=== PATIENT | female | born 1935 | race Caucasian/White ===

== ENCOUNTER 2017-06-14 07:12 | Outpatient (CLI) | payer SELFPAY ==
[2017-06-14 08:37] LABS: HEMOGLOBIN A1C 5.3 % (4.5-6.2)
[2017-06-14 08:49] LABS: CHOL/HDL RATIO 2.11 (0.00-4.99)
== END 2017-06-14 23:59 | disposition home or self-care (01) ==
LOC: HW WOMENS 07:12
DX: Z00.00 Encounter for general adult medical examination without abnormal findings (principal)
CPT/HCPCS: 36415

== ENCOUNTER 2017-12-22 11:36 | Emergency (ER) | payer MEDICARE, OTHER ==
[~2017-12-22] VITALS: Ht 160 cm; Wt 50.4 kg
[2017-12-22 12:41] LABS: BASOPHILS # (AUTO) 0.1 X10'3 (0-0.2); BASOPHILS % (AUTO) 1.4 % (0-1); EOSINOPHILS # (AUTO) 0.1 X10'3 (0-0.9); EOSINOPHILS % (AUTO) 1.7 % (0-6); HEMATOCRIT 41.8 % (35.0-45.0); HEMOGLOBIN 14.3 g/dl (12.0-16.0); LYMPHOCYTES # (AUTO) 0.9 X10'3 (1.1-4.8); LYMPHOCYTES % (AUTO) 20.7 % (21-51); MEAN CORPUSCULAR HGB CONC 34.1 % (33.0-36.5); MEAN CORPUSCULAR VOLUME 99.7 FL (78-98); MONOCYTES # (AUTO) 0.6 X10'3 (0-0.9); MONOCYTES % (AUTO) 12.7 % (2-12); NEUTROPHILS # (AUTO) 2.8 X10'3 (1.8-7.7); NEUTROPHILS % (AUTO) 63.5 % (42-75); PLATELET COUNT 175 X10'3 (140-440); RED BLOOD COUNT 4.19 X10'6 (4.20-5.60); RED CELL DISTRIBUTION WIDTH 12.7 % (11.5-14.5); WHITE BLOOD COUNT 4.5 X10'3 (4.5-11.0)
[2017-12-22 12:59] LABS: ALANINE AMINOTRANSFERASE 22 U/L (12-78); ALBUMIN 3.4 G/DL (3.4-5.0); ALBUMIN/GLOBULIN RATIO 0.9 (1.1-1.5); ALKALINE PHOSPHATASE 98 IU/L (46-116); ANION GAP 4 (8-16); ASPARTATE AMINO TRANSFERASE 25 U/L (10-37); BLOOD UREA NITROGEN 14 MG/DL (7-18); BUN/CREATININE RATIO 16.1 (6.6-38.0); CALCIUM 9.1 MG/DL (8.5-10.1); CHLORIDE 103 MMOL/L (99-107); CREATININE 0.87 MG/DL (0.40-0.90); GLUCOSE 147 MG/DL (70-104); POTASSIUM 4.2 MMOL/L (3.5-5.1); SODIUM 139 MMOL/L (135-145); TOTAL CARBON DIOXIDE 32.2 MMOL/L (24-32); TOTAL PROTEIN 7.2 G/DL (6.4-8.2); eGFR 62 ML/MIN
[2017-12-22 13:10] LABS: PARTIAL THROMBOPLASTIN TIME 30 SECONDS (22-32); PROTHROMBIN TIME 10.6 SECONDS (9.0-12.0)
[2017-12-22 13:52] LABS: CLARITY,URINE CLEAR (Clear); COLOR,URINE YELLOW (Yellow); GLUCOSE, URINE NEGATIVE (Neg); KETONES,URINE NEGATIVE (Neg); LEUKOCYTE ESTERASE ,URINE SMALL (Neg); NITRITES, URINE NEGATIVE (Neg); OCCULT BLOOD,URINE NEGATIVE (Neg); PROTEIN,URINE NEGATIVE (Neg); UROBILINOGEN,URINE 0.2 E.U/dL (0.2-1.0)
[2017-12-22 13:54] LABS: UA COLLECTION TYPE CLN CATCH MIDSTREAM
[2017-12-22 14:03] LABS: BACTERIA,URINE FEW /HPF (Neg); MUCUS STRANDS FEW /LPF (Neg); RBC,URINE NONE SEEN /HPF (0-2); SQUAMOUS EPITHELIAL CELL,UR MODERATE /LPF (FEW); WBC CLUMPS,URINE FEW /HPF (NEGATIVE)
[2017-12-22 14:04] VITALS: BP 118/55
== END 2017-12-22 14:30 | disposition home or self-care (01) ==
LOC: ER 11:36
DX: H53.8 Other visual disturbances (principal); I48.91 Unspecified atrial fibrillation; I10 Essential (primary) hypertension; F17.200 Nicotine dependence, unspecified, uncomplicated; Z98.890 Other specified postprocedural states; Z86.73 Personal history of transient ischemic attack (TIA), and cerebral infarction without residual deficits; Z88.2 Allergy status to sulfonamides; Z79.01 Long term (current) use of anticoagulants
CPT/HCPCS: 36415; 70450; 71045; 80053; 80162; 81001; 84443; 85025; 85610; 85730; 87088; 93005; 99285

== ENCOUNTER 2018-10-06 11:35 | Emergency (ER) | payer MEDICARE, OTHER ==
[~2018-10-06] VITALS: Ht 160 cm; Wt 53.0 kg
[2018-10-06 13:07] VITALS: BP 117/66
== END 2018-10-06 13:11 | disposition home or self-care (01) ==
LOC: ER 11:35
DX: S20.212A Contusion of left front wall of thorax, initial encounter (principal); R10.9 Unspecified abdominal pain; I48.91 Unspecified atrial fibrillation; I10 Essential (primary) hypertension; Z86.73 Personal history of transient ischemic attack (TIA), and cerebral infarction without residual deficits; Z98.890 Other specified postprocedural states; Z88.2 Allergy status to sulfonamides; Z79.01 Long term (current) use of anticoagulants; W01.0XXA Fall on same level from slipping, tripping and stumbling without subsequent striking against object, initial encounter; Y93.89 Activity, other specified; Y92.89 Other specified places as the place of occurrence of the external cause; Y99.8 Other external cause status
CPT/HCPCS: 71101; 99284

== ENCOUNTER 2018-10-13 07:59 | Emergency (ER) | payer MEDICARE, OTHER ==
[~2018-10-13] VITALS: Ht 160 cm; Wt 50.0 kg
[2018-10-13 08:02] VITALS: BP 143/71
[2018-10-13] MEDS ORDERED: METH500T PO (09:53)
[2018-10-13] MEDS ORDERED: TRAM50TA2 PO (09:53)
== END 2018-10-13 10:01 | disposition home or self-care (01) ==
LOC: ER 08:00
DX: S20.212A Contusion of left front wall of thorax, initial encounter (principal); I48.91 Unspecified atrial fibrillation; I10 Essential (primary) hypertension; Z86.73 Personal history of transient ischemic attack (TIA), and cerebral infarction without residual deficits; Z98.890 Other specified postprocedural states; Z88.2 Allergy status to sulfonamides; Z79.899 Other long term (current) drug therapy; W18.39XA Other fall on same level, initial encounter; Y93.89 Activity, other specified; Y92.89 Other specified places as the place of occurrence of the external cause; Y99.8 Other external cause status
CPT/HCPCS: 71250; 99284

== ENCOUNTER 2019-02-24 06:10 | Emergency (ER) | payer MEDICARE, OTHER ==
[~2019-02-24] VITALS: Ht 160 cm; Wt 52.7 kg
[~2019-02-24 06:10] MED LIST: METH500T PO
--- NOTE | 2019-02-24 06:51 | NUR ---
Dr. Alonso at bedside.
[2019-02-24] MEDS ORDERED: BENZ-16 PO (08:10)
[2019-02-24 08:37] VITALS: BP 104/69
== END 2019-02-24 08:39 | disposition home or self-care (01) ==
LOC: ER 06:12
DX: J06.9 Acute upper respiratory infection, unspecified (principal); I48.91 Unspecified atrial fibrillation; I10 Essential (primary) hypertension; Z98.890 Other specified postprocedural states; Z86.73 Personal history of transient ischemic attack (TIA), and cerebral infarction without residual deficits; Z88.2 Allergy status to sulfonamides; Z79.899 Other long term (current) drug therapy
CPT/HCPCS: 70450; 71046; 99284

== ENCOUNTER 2021-11-01 21:38 | Emergency (ER) | payer MEDICARE, OTHER ==
[~2021-11-01] VITALS: Ht 157.5 cm; Wt 45.5 kg
[2021-11-01] MEDS ORDERED: ALEN70TA80 PO (23:55)
[2021-11-01] MEDS ORDERED: METO25TA6 PO (23:55)
[2021-11-01] MEDS ORDERED: TOLT4CAP28 PO (23:55)
[2021-11-01] MEDS ORDERED: APIX2.5T PO (23:55)
[2021-11-01] MEDS ORDERED: SIMV-45 PO (23:55)
[2021-11-01] MEDS ORDERED: LOTE5DRO9 (23:55)
--- NOTE | 2021-11-02 00:13 | NUR ---
Daughter Bhavna Salcido [phone]
[2021-11-02 01:53] LABS: BASOPHILS % (AUTO) 0.7 % (0-1); EOSINOPHILS # (AUTO) 0.1 X10'3 (0-0.9); EOSINOPHILS % (AUTO) 1.7 % (0-6); HEMATOCRIT 43.5 % (35.0-45.0); HEMOGLOBIN 14.8 g/dl (12.0-16.0); LYMPHOCYTES # (AUTO) 1.1 X10'3 (1.1-4.8); LYMPHOCYTES % (AUTO) 34.6 % (21-51); MEAN CORPUSCULAR HEMOGLOBIN 34.7 PG (27.0-31.0); MEAN CORPUSCULAR HGB CONC 34.1 g/dL (33.0-36.5); MEAN CORPUSCULAR VOLUME 101.8 FL (78-98); MEAN PLATELET VOLUME 8.5 FL (7.4-10.4); MONOCYTES # (AUTO) 0.6 X10'3 (0-0.9); MONOCYTES % (AUTO) 19.1 % (2-12); NEUTROPHILS # (AUTO) 1.4 X10'3 (1.8-7.7); NEUTROPHILS % (AUTO) 43.9 % (42-75); PLATELET COUNT 141 X10'3 (140-440); RED BLOOD COUNT 4.27 X10'6 (4.20-5.60); RED CELL DISTRIBUTION WIDTH 13.4 % (11.5-14.5); WHITE BLOOD COUNT 3.2 X10'3 (4.5-11.0)
--- NOTE | 2021-11-02 02:05 | NUR ---
PT IN BED ASLEEP AT THIS TIME.
[2021-11-02 02:06] LABS: URINE AMPHETAMINE SCREEN NEGATIVE (Neg); URINE BARBITUATE SCREEN NEGATIVE (Neg); URINE BENZODIAZEPINES SCREEN NEGATIVE (Neg); URINE CANNABINOID SCREEN NEGATIVE (Neg); URINE COCAINE SCREEN NEGATIVE (Neg); URINE METHADONE SCREEN NEGATIVE (Neg); URINE OPIATE SCREEN NEGATIVE (Neg); URINE PHENCYCLIDINE SCREEN NEGATIVE (Neg)
[2021-11-02 02:09] LABS: ALANINE AMINOTRANSFERASE 23 U/L (12-78); ALBUMIN 3.7 G/DL (3.4-5.0); ALBUMIN/GLOBULIN RATIO 0.9 (1.1-1.5); ALKALINE PHOSPHATASE 72 IU/L (46-116); ANION GAP 7 (8-16); ASPARTATE AMINO TRANSFERASE 36 U/L (10-37); BLOOD UREA NITROGEN 15 MG/DL (7-18); BUN/CREATININE RATIO 17.9 (6.6-38.0); CALCIUM 9.1 MG/DL (8.5-10.1); CHLORIDE 104 MMOL/L (99-107); CREATININE 0.84 MG/DL (0.40-0.90); ETHANOL < 0.010 GM/DL (0.0-0.010); GLUCOSE 95 MG/DL (70-104); POTASSIUM 4.4 MMOL/L (3.5-5.1); SODIUM 144 MMOL/L (135-145); TOTAL CARBON DIOXIDE 32.9 MMOL/L (24-32); TOTAL PROTEIN 7.9 G/DL (6.4-8.2); eGFR 64 ML/MIN
--- NOTE | 2021-11-02 03:56 | NUR ---
LAB CALL FOR POSITIVE COVID. HERNANDEZ AWARE
--- NOTE | 2021-11-02 04:54 | NUR ---
PT IS ASLEEP IN BED. PT RESPIRATIONS ARE EVEN AND UNLABORED
--- NOTE | 2021-11-02 07:00 | NUR ---
Pt resting with eyes closed, effortless respirations observed.
--- NOTE | 2021-11-02 08:20 | NUR ---
Pt remains calm and cooperative and denies needs. Pts breakfast tray set up and pt eating.
[2021-11-02] MEDS ORDERED: apixaban 2.5mg tablet PO SCH (09:11)
[2021-11-02] MEDS ORDERED: metoprolol tartrate 25mg tablet PO SCH (09:56)
[2021-11-02 10:34] LABS: CLARITY,URINE CLOUDY (Clear); COLOR,URINE YELLOW (Yellow); GLUCOSE, URINE NEGATIVE (Neg); KETONES,URINE NEGATIVE (Neg); LEUKOCYTE ESTERASE ,URINE TRACE (Neg); NITRITES, URINE NEGATIVE (Neg); OCCULT BLOOD,URINE NEGATIVE (Neg); PROTEIN,URINE TRACE mg/dl (Neg); UROBILINOGEN,URINE 0.2 E.U/dL (0.2-1.0)
[2021-11-02 10:43] LABS: UA COLLECTION TYPE NON-SPECIFIED
[2021-11-02 10:48] VITALS: BP 112/60
[2021-11-02 11:29] LABS: CAL OXALATE CRYSTALS 4+ /HPF (NEGATIVE); MUCUS STRANDS MODERATE /LPF (Neg); SQUAMOUS EPITHELIAL CELL,UR MODERATE /LPF (FEW)
[2021-11-02 11:31] LABS: BACTERIA,URINE FEW /HPF (Neg); RBC,URINE 0-2 /HPF (0-2); WBC,URINE 0-4 /HPF (0-4)
[2021-11-02 11:32] LABS: HYALINE CASTS 0-3 /LPF (NEGATIVE)
--- NOTE | 2021-11-02 16:30 | NUR ---
SS worker Isabel was updated on pt status. SS will be contacting pts daughter.
--- NOTE | 2021-11-02 17:30 | NUR ---
Pt evaluated by [facility] and pt will be going home with her daughter.
[2021-11-02] MEDS ORDERED: atorvastatin 20mg tablet PO SCH (21:00)
== END 2021-11-02 19:35 | disposition home or self-care (01) ==
LOC: ER 21:40
DX: U07.1 COVID-19 (principal); F03.91 Unspecified dementia, unspecified severity, with behavioral disturbance; F20.0 Paranoid schizophrenia; I10 Essential (primary) hypertension; I11.9 Hypertensive heart disease without heart failure; Z88.2 Allergy status to sulfonamides; Z79.899 Other long term (current) drug therapy; Z87.81 Personal history of (healed) traumatic fracture
CPT/HCPCS: 80053; 80305; 80320; 81001; 85025; 87088; 87811; 99285

== ENCOUNTER 2022-01-13 13:21 | Emergency (ER) | payer OTHER ==
[~2022-01-13] VITALS: Ht 157.5 cm; Wt 45.0 kg
[~2022-01-13 13:21] MED LIST changes: +APIX2.5T PO; -METH500T PO; +METO25TA6 PO; +SIMV-45 PO
[2022-01-13 13:35] VITALS: BP 121/66
[2022-01-13] MEDS ORDERED: LORA-269 PO (15:29)
== END 2022-01-13 15:16 ==
LOC: ER 13:22
DX: F03.90 Unspecified dementia, unspecified severity, without behavioral disturbance, psychotic disturbance, mood disturbance, and anxiety (principal); M54.2 Cervicalgia; I48.91 Unspecified atrial fibrillation; I10 Essential (primary) hypertension; Z86.73 Personal history of transient ischemic attack (TIA), and cerebral infarction without residual deficits; Z98.890 Other specified postprocedural states; Z88.2 Allergy status to sulfonamides; Z79.899 Other long term (current) drug therapy; W18.30XA Fall on same level, unspecified, initial encounter; Y93.89 Activity, other specified; Y92.89 Other specified places as the place of occurrence of the external cause; Y99.8 Other external cause status
CPT/HCPCS: 71045; 99284

== ENCOUNTER 2022-10-04 03:05 | Emergency (ER) | payer MEDICARE ==
[~2022-10-04] VITALS: Ht 154.9 cm; Wt 54.5 kg
[~2022-10-04 03:05] MED LIST changes: -APIX2.5T PO; +ASPI-1071 PO; +BETA1TAB18 PO; +CHOL20002 PO; +CYAN-50 PO; +DIVA125T2 PO; +KEN0.1O TP; +MAGN400C PO; +MELA3TAB39 PO; -METO25TA6 PO; +PANT40TA54 PO; -SIMV-45 PO
[2022-10-04 03:19] VITALS: BP 138/74; PULSE 85; O2SAT 99
[2022-10-04 03:32] VITALS: RESP 18
[2022-10-04 04:59] LABS: BASOPHILS # (AUTO) 0.1 X10'3 (0-0.2); BASOPHILS % (AUTO) 1.4 % (0-1); EOSINOPHILS # (AUTO) 0.2 X10'3 (0-0.9); EOSINOPHILS % (AUTO) 3.1 % (0-6); HEMATOCRIT 39.8 % (35.0-45.0); HEMOGLOBIN 13.4 g/dl (12.0-16.0); LYMPHOCYTES # (AUTO) 0.8 X10'3 (1.1-4.8); LYMPHOCYTES % (AUTO) 14.8 % (21-51); MEAN CORPUSCULAR HEMOGLOBIN 34.5 PG (27.0-31.0); MEAN CORPUSCULAR HGB CONC 33.6 g/dL (33.0-36.5); MEAN CORPUSCULAR VOLUME 102.7 FL (78-98); MONOCYTES # (AUTO) 0.7 X10'3 (0-0.9); NEUTROPHILS # (AUTO) 3.5 X10'3 (1.8-7.7); NEUTROPHILS % (AUTO) 67.7 % (42-75); PLATELET COUNT 191 X10'3 (140-440); RED BLOOD COUNT 3.87 X10'6 (4.20-5.60); RED CELL DISTRIBUTION WIDTH 13.8 % (11.5-14.5); WHITE BLOOD COUNT 5.1 X10'3 (4.5-11.0)
[2022-10-04 05:07] LABS: ALANINE AMINOTRANSFERASE 14 U/L (12-78); ALBUMIN 2.9 G/DL (3.4-5.0); ALBUMIN/GLOBULIN RATIO 0.7 (1.1-1.5); ALKALINE PHOSPHATASE 181 IU/L (46-116); ANION GAP 7 (8-16); ASPARTATE AMINO TRANSFERASE 22 U/L (10-37); BILIRUBIN,TOTAL 0.4 MG/DL (0.1-1.0); BLOOD UREA NITROGEN 16 MG/DL (7-18); BUN/CREATININE RATIO 20.3 (10.0-20.0); CALCIUM 9.2 MG/DL (8.5-10.1); CHLORIDE 104 MMOL/L (99-107); CREATINE KINASE 26 U/L (26-192); CREATININE 0.79 MG/DL (0.40-0.90); GLUCOSE 90 MG/DL (70-104); POTASSIUM 4.3 MMOL/L (3.5-5.1); SODIUM 141 MMOL/L (135-145); TOTAL CARBON DIOXIDE 29.9 MMOL/L (24-32); eGFR 69 ML/MIN
== END 2022-10-04 06:14 | disposition home or self-care (01) ==
LOC: ER 03:05
DX: F03.90 Unspecified dementia, unspecified severity, without behavioral disturbance, psychotic disturbance, mood disturbance, and anxiety (principal); M25.551 Pain in right hip; I10 Essential (primary) hypertension; Z88.2 Allergy status to sulfonamides; Z79.1 Long term (current) use of non-steroidal anti-inflammatories (NSAID); Z79.899 Other long term (current) drug therapy; W19.XXXA Unspecified fall, initial encounter; Y93.89 Activity, other specified; Y99.8 Other external cause status; Y92.89 Other specified places as the place of occurrence of the external cause
CPT/HCPCS: 36415; 70450; 71045; 72125; 73502; 80053; 82550; 85025; 93005; 99285

== ENCOUNTER 2023-01-20 01:01 | Inpatient (IN) | payer MEDICARE ==
[2023-01-19 14:02] VITALS: BP 137/58; PULSE 77; RESP 14; O2SAT 97
[~2023-01-20] VITALS: Ht 157.5 cm; Wt 47.7 kg
[2023-01-20] MEDS ORDERED: morphine 2 MG/ML inj. syringe IV ONE (01:45)
[2023-01-20] MEDS ORDERED: ondansetron/PF 4mg/2ml inj IV ONE (01:45)
[2023-01-20] MEDS: normal saline 500ml IV soln 500 ML IV SCH ×5 (02:18→18:25)
[2023-01-20] MEDS ORDERED: ondansetron/PF 4mg/2ml inj IV PRN (03:00)
[2023-01-20] MEDS ORDERED: magnesium 4gm in 100ml NS 100 ML IV PRN (03:00)
[2023-01-20] MEDS ORDERED: magnesium 2GM in 50ml NS 50 ML IV PRN (03:00)
[2023-01-20] MEDS ORDERED: potassium Cl 40MEQ/1/2NS 520ml 520 ML IV PRN (03:00)
[2023-01-20] MEDS ORDERED: magnesium Cl slow-release 64mg tablet PO PRN (03:00)
[2023-01-20] MEDS ORDERED: acetaminophen 325mg tablet PO PRN ×2 (03:00)
[2023-01-20] MEDS ORDERED: potassium Cl 20 mEq SR tablet PO PRN ×2 (03:00)
[2023-01-20] MEDS ORDERED: CefTRIAXone 2gm/D5W 50ml BAG 50 ML IV ONE (03:05)
[2023-01-20 05:31] LABS: BILIRUBIN,URINE NEGATIVE (Neg); CLARITY,URINE CLOUDY (Clear); COLOR,URINE YELLOW (Yellow); GLUCOSE, URINE NEGATIVE (Neg); KETONES,URINE NEGATIVE (Neg); LEUKOCYTE ESTERASE ,URINE SMALL (Neg); NITRITES, URINE NEGATIVE (Neg); OCCULT BLOOD,URINE NEGATIVE (Neg); PROTEIN,URINE NEGATIVE (Neg); UROBILINOGEN,URINE 0.2 E.U/dL (0.2-1.0)
[2023-01-20 05:33] LABS: MEAN CORPUSCULAR VOLUME 101.5 FL (78-98)
[2023-01-20 05:35] LABS: BASOPHILS % (AUTO) 0.5 % (0-1); EOSINOPHILS # (AUTO) 0.1 X10'3 (0-0.9); EOSINOPHILS % (AUTO) 1.2 % (0-6); HEMATOCRIT 36.5 % (35.0-45.0); HEMOGLOBIN 12.4 g/dl (12.0-16.0); LYMPHOCYTES # (AUTO) 1.6 X10'3 (1.1-4.8); LYMPHOCYTES % (AUTO) 17.4 % (21-51); MEAN CORPUSCULAR HEMOGLOBIN 34.6 PG (27.0-31.0); MEAN CORPUSCULAR HGB CONC 34.1 g/dL (33.0-36.5); MEAN PLATELET VOLUME 8.7 FL (7.4-10.4); MONOCYTES # (AUTO) 0.9 X10'3 (0-0.9); MONOCYTES % (AUTO) 9.5 % (2-12); NEUTROPHILS # (AUTO) 6.7 X10'3 (1.8-7.7); NEUTROPHILS % (AUTO) 71.4 % (42-75); PLATELET COUNT 146 X10'3 (140-440); RED BLOOD COUNT 3.59 X10'6 (4.20-5.60); RED CELL DISTRIBUTION WIDTH 14.2 % (11.5-14.5); WHITE BLOOD COUNT 9.4 X10'3 (4.5-11.0)
[2023-01-20 05:41] LABS: UA COLLECTION TYPE FOLEY CATH
[2023-01-20 05:42] LABS: APTT 29 SECONDS (22-32); INR 1.1 INR; PROTHROMBIN TIME 11.5 SECONDS (9.0-12.0)
[2023-01-20 05:44] LABS: ALANINE AMINOTRANSFERASE 12 U/L (12-78); ALBUMIN 2.8 G/DL (3.4-5.0); ALBUMIN/GLOBULIN RATIO 0.7 (1.1-1.5); ALKALINE PHOSPHATASE 81 IU/L (46-116); ANION GAP 1 (8-16); ASPARTATE AMINO TRANSFERASE 26 U/L (10-37); BILIRUBIN,TOTAL 0.7 MG/DL (0.1-1.0); BLOOD UREA NITROGEN 16 MG/DL (7-18); BUN/CREATININE RATIO 20.3 (10.0-20.0); CALCIUM 8.6 MG/DL (8.5-10.1); CHLORIDE 104 MMOL/L (99-107); CREATININE 0.79 MG/DL (0.40-0.90); GLUCOSE 120 MG/DL (70-104); SODIUM 138 MMOL/L (135-145); TOTAL CARBON DIOXIDE 33.3 MMOL/L (24-32); TOTAL PROTEIN 6.7 G/DL (6.4-8.2); eCRCL 39 ML/MIN; eGFR 69 ML/MIN
[2023-01-20 05:45] LABS: WBC,URINE 30-50 /HPF (0-4)
[2023-01-20 05:46] LABS: BACTERIA,URINE 4+ /HPF (Neg); MUCUS STRANDS NONE SEEN /LPF (Neg); RBC,URINE NONE SEEN /HPF (0-2); SQUAMOUS EPITHELIAL CELL,UR FEW /LPF (FEW); WBC CLUMPS,URINE FEW /HPF (NEGATIVE)
[2023-01-20 06:07] LABS: POTASSIUM 4.6 MMOL/L (3.5-5.1)
[2023-01-20] MEDS: morphine 2 MG/ML inj. syringe IV PRN ×2 (06:39→19:41)
[2023-01-20 07:00] VITALS: BP 120/60; PULSE 82; RESP 20; TEMP 97.8; O2SAT 98
[2023-01-20] MEDS: normal saline 1000ml 1,000 ML IV SCH (07:39)
[2023-01-20 08:00] VITALS: RESP 20; O2SAT 97
[2023-01-20 10:00] VITALS: BP 123/54; PULSE 85; RESP 20; TEMP 97.8; O2SAT 97
--- NOTE | 2023-01-20 11:24 | NUR ---
Noted pt with a low BMI for geriatric age of [age] using wt of 47.73 kg. No documentation of how current wt was obtained so likely not scaled however it is consistent with wt hx range in EMR. Unable to obtain information from pt at this time as pt confused with dementia per EMR. Pt currently NPO and just admitted so pending physical assessment and malnutrition risk screen with RN. Pt does not have edema per physician notes. Will continue to follow and monitor s/s of malnutrition and need for nutrition intervention. Addendum: 01/20/23 at [address] Amended: Links added.
[2023-01-20 18:00] VITALS: BP 123/64; PULSE 79; RESP 18; TEMP 97; O2SAT 99
--- NOTE | 2023-01-20 18:59 | NUR ---
Problems reprioritized. Patient report given, questions answered & plan of care reviewed with Laura.
[2023-01-20] MEDS: enoxaparin 40mg/0.4ml syringe SQ SCH (19:41)
[2023-01-20 22:00] VITALS: BP 134/67; PULSE 91; RESP 16; TEMP 98.5; O2SAT 96
[2023-01-21] VITALS (15 sets, daily range): BP systolic 93–140; BP diastolic 42–74; PULSE 50–108; RESP 12–23; TEMP 97.1–97.9; O2SAT 89–100
--- NOTE | 2023-01-21 06:23 | NUR ---
Problems reprioritized. Patient report given, questions answered & plan of care reviewed with Meg ALARCON.
[2023-01-21 06:32] LABS: BASOPHILS # (AUTO) 0.1 X10'3 (0-0.2); BASOPHILS % (AUTO) 0.6 % (0-1); EOSINOPHILS % (AUTO) 0.1 % (0-6); HEMATOCRIT 33.4 % (35.0-45.0); HEMOGLOBIN 11.1 g/dl (12.0-16.0); LYMPHOCYTES # (AUTO) 1.2 X10'3 (1.1-4.8); LYMPHOCYTES % (AUTO) 13.7 % (21-51); MEAN CORPUSCULAR HGB CONC 33.3 g/dL (33.0-36.5); MEAN CORPUSCULAR VOLUME 101.9 FL (78-98); MEAN PLATELET VOLUME 8.6 FL (7.4-10.4); MONOCYTES # (AUTO) 1.4 X10'3 (0-0.9); MONOCYTES % (AUTO) 15.9 % (2-12); NEUTROPHILS # (AUTO) 6.1 X10'3 (1.8-7.7); NEUTROPHILS % (AUTO) 69.7 % (42-75); PLATELET COUNT 134 X10'3 (140-440); RED BLOOD COUNT 3.28 X10'6 (4.20-5.60); RED CELL DISTRIBUTION WIDTH 14.3 % (11.5-14.5); WHITE BLOOD COUNT 8.8 X10'3 (4.5-11.0)
[2023-01-21 06:42] LABS: APTT 29 SECONDS (22-32)
--- NOTE | 2023-01-21 06:42 | NUR ---
Patient in room ORTHO 4020. I have received report from Laura and had the opportunity to ask questions and assume patient care.
[2023-01-21 06:53] LABS: ALANINE AMINOTRANSFERASE 13 U/L (12-78); ALBUMIN 2.9 G/DL (3.4-5.0); ALBUMIN/GLOBULIN RATIO 0.8 (1.1-1.5); ALKALINE PHOSPHATASE 74 IU/L (46-116); ANION GAP 6 (8-16); ASPARTATE AMINO TRANSFERASE 23 U/L (10-37); BILIRUBIN,TOTAL 1.3 MG/DL (0.1-1.0); BLOOD UREA NITROGEN 14 MG/DL (7-18); BUN/CREATININE RATIO 15.4 (10.0-20.0); CALCIUM 8.8 MG/DL (8.5-10.1); CHLORIDE 102 MMOL/L (99-107); CREATININE 0.91 MG/DL (0.40-0.90); GLUCOSE 101 MG/DL (70-104); POTASSIUM 3.4 MMOL/L (3.5-5.1); SODIUM 138 MMOL/L (135-145); TOTAL CARBON DIOXIDE 30.4 MMOL/L (24-32); TOTAL PROTEIN 6.7 G/DL (6.4-8.2); eCRCL 33 ML/MIN; eGFR 59 ML/MIN
[2023-01-21 07:22] LABS: PLATELET ESTIMATE DECREASED; TOTAL CELLS COUNTED 100
[2023-01-21] MEDS: normal saline 500ml IV soln 500 ML IV SCH ×5 (07:45→21:05)
[2023-01-21] MEDS: normal saline 1000ml 1,000 ML IV SCH ×2 (09:47→19:28)
[2023-01-21] MEDS ORDERED: meperidine/PF 25mg/ml syringe IV PRN (12:30)
[2023-01-21] MEDS ORDERED: HYDROmorphone/PF 0.2 MG/ML SYRINGE IV PRN (12:30)
[2023-01-21] MEDS ORDERED: proCHLORperazine 10 MG/2 ml inj IV PRN (12:30)
[2023-01-21] MEDS ORDERED: labetalol 20mg/4ml (5mg/ml) syringe IV PRN (12:30)
[2023-01-21] MEDS ORDERED: ondansetron/PF 4mg/2ml inj IV PRN (12:30)
[2023-01-21] MEDS ORDERED: hydrALAZINE 20mg/ml inj. IV PRN (12:30)
[2023-01-21] MEDS ORDERED: acetaminophen 1,000mg/100ml IV 100 ML IV PRN (12:30)
[2023-01-21] MEDS ORDERED: ringers solution, lacted 1,000 ML IV SCH (12:30)
[2023-01-21] MEDS ORDERED: morphine 2 MG/ML inj. syringe IV PRN (12:30)
[2023-01-21] MEDS ORDERED: sevoflurane 250ml liquid IH ONE (13:00)
[2023-01-21] MEDS ORDERED: fentaNYL/PF 50MCG/1 ML 2ML syringe ONE (13:23)
[2023-01-21] MEDS ORDERED: propofol inj 0 ML IV ONE (13:24)
[2023-01-21] MEDS ORDERED: LIDOcaine 2% (20mg/ml) 5ml vial ONE (13:24)
[2023-01-21] MEDS ORDERED: propofol inj 20 ML IV ONE (13:24)
[2023-01-21] MEDS ORDERED: ePHEDrine 50MG/ML INJ. ONE (13:25)
[2023-01-21] MEDS ORDERED: ceFAZolin 1000mg inj ONE ×2 (13:25)
--- NOTE | 2023-01-21 14:02 | NUR ---
Received from OR via HOSPITAL BED, accompanied by Anesthesiologist and report given by FELIX Anesthesiologist. PT UNCONSCIOUS WITH ORAL AIRWAY . VSS. PT PRESENTS WITH PIV 20G LEFT FOREARM, RIGHT HIP DRESSING C/D/I WITH ICE PACK, STRONG DISTAL PULSES NOTED. MORALES CATHETER DRAINING CLEAR YELLOW URINE. ELEVATED AND ICE RLE. Addendum: 01/21/23 at 1424 by Fei Hollingsworth RN Amended: Links added.
--- NOTE | 2023-01-21 14:42 | NUR ---
PATIENT HAS MET ALL CRITERIA FOR TRANSFER TO ORTHO FLOOR. VSS. DRESSINGS INTACT. BED LOW, CALL LIGHT PRESENT AND 2 RAILS UP. RN PRESENT TO ACCEPT CARE OF PATIENT AND REPORT HAS BEEN CALLED. ALL QUESTIONS ANSWERED TO ACCEPTING RN. Addendum: 01/21/23 at 1456 by Fei Hollingsworth RN Amended: Links added.
[2023-01-21] MEDS: ceFAZolin/D5W- 1GM premix 50 ML IV SCH ×2 (16:40→23:52)
[2023-01-21] MEDS: enoxaparin 40mg/0.4ml syringe SQ SCH (19:28)
[2023-01-21] MEDS: morphine 2 MG/ML inj. syringe IV PRN (19:29)
[2023-01-22] VITALS (8 sets, daily range): BP systolic 97–102; BP diastolic 44–56; PULSE 72–110; RESP 15–20; TEMP 96.8–97.4; O2SAT 96–100
[2023-01-22] MEDS: normal saline 500ml IV soln 500 ML IV SCH ×3 (00:25→19:37)
[2023-01-22] MEDS: morphine 2 MG/ML inj. syringe IV PRN (00:52)
[2023-01-22 05:53] LABS: HEMATOCRIT 24.3 % (35.0-45.0); MEAN CORPUSCULAR HGB CONC 33.2 g/dL (33.0-36.5); MEAN CORPUSCULAR VOLUME 102.5 FL (78-98); MEAN PLATELET VOLUME 9.1 FL (7.4-10.4); PLATELET COUNT 98 X10'3 (140-440); RED BLOOD COUNT 2.37 X10'6 (4.20-5.60); RED CELL DISTRIBUTION WIDTH 14.3 % (11.5-14.5); WHITE BLOOD COUNT 10.2 X10'3 (4.5-11.0)
[2023-01-22 06:22] LABS: ALANINE AMINOTRANSFERASE 11 U/L (12-78); ALBUMIN 2.5 G/DL (3.4-5.0); ALBUMIN/GLOBULIN RATIO 0.8 (1.1-1.5); ALKALINE PHOSPHATASE 61 IU/L (46-116); ANION GAP 6 (8-16); ASPARTATE AMINO TRANSFERASE 23 U/L (10-37); BLOOD UREA NITROGEN 26 MG/DL (7-18); BUN/CREATININE RATIO 29.5 (10.0-20.0); CALCIUM 8.7 MG/DL (8.5-10.1); CHLORIDE 104 MMOL/L (99-107); CREATININE 0.88 MG/DL (0.40-0.90); GLUCOSE 131 MG/DL (70-104); POTASSIUM 4.7 MMOL/L (3.5-5.1); SODIUM 138 MMOL/L (135-145); TOTAL CARBON DIOXIDE 28.2 MMOL/L (24-32); TOTAL PROTEIN 5.7 G/DL (6.4-8.2); eCRCL 35 ML/MIN; eGFR 61 ML/MIN
--- NOTE | 2023-01-22 06:28 | NUR ---
Report received from Laura ALARCON
--- NOTE | 2023-01-22 06:31 | NUR ---
Problems reprioritized. Patient report given, questions answered & plan of care reviewed with Ana ALARCON.
[2023-01-22 07:12] LABS: TOTAL CELLS COUNTED 100
[2023-01-22 07:13] LABS: PLATELET ESTIMATE DECREASED; SMUDGE CELLS FEW
[2023-01-22] MEDS: HYDROcodone/acetaminophen 5mg/325mg tablet PO PRN ×2 (07:18→19:44)
[2023-01-22] MEDS: ceFAZolin/D5W- 1GM premix 50 ML IV SCH ×2 (07:20→18:04)
--- NOTE | 2023-01-22 09:46 | NUR ---
Malnutrition consult: Pt unsure of wt loss though also reports 2-13 lb wt loss with decreased appetite per f/u malnutrition risk screen with RN. Pt remains A/O x 1 and confused with dementia per EMR. Current documented wt is consistent with wt hx range in EMR. Pt POD #1 s/p right ORIF and diet has been advanced to regular, pt with 25% PO intake of first meal. Pt would benefit from ONS if PO intake does not improve however would like to see trends in PO intake prior to ONS initiation so most appropriate recommendation is implemented. Pt with no documented significant decrease in muscle strength or edema. Pt currently lacks a minimum of two criteria for malnutrition. Will continue to follow and monitor s/s of malnutrition and need for nutrition intervention. Addendum: 01/22/23 at [address] Amended: Links added.
--- NOTE | 2023-01-22 12:17 | NUR ---
assumed care of pt from Ana ALARCON.
--- NOTE | 2023-01-22 12:45 | NUR ---
pt is sleeping in recliner, easily arouseable, needs assistance eating.
--- NOTE | 2023-01-22 14:47 | NUR ---
pt is resting quietly, watching TV. No complaints
[2023-01-22] MEDS: normal saline 1000ml 1,000 ML IV SCH (17:12)
--- NOTE | 2023-01-22 17:12 | NUR ---
pt is back in bed, sleeping, resp even and unlabored,
--- NOTE | 2023-01-22 18:00 | NUR ---
Patient in room ORTHO 4020. I have received report from DORIAN Dickerson and had the opportunity to ask questions and assume patient care.
--- NOTE | 2023-01-22 18:14 | NUR ---
report given to Emani ALARCON
[2023-01-22] MEDS: enoxaparin 40mg/0.4ml syringe SQ SCH (19:42)
[2023-01-23] VITALS (10 sets, daily range): BP systolic 98–116; BP diastolic 48–59; PULSE 70–99; RESP 16–18; TEMP 97.3–98.7; O2SAT 97–98
--- NOTE | 2023-01-23 06:34 | NUR ---
Problems reprioritized. Patient report given, questions answered & plan of care reviewed with DORIAN Santos.
--- NOTE | 2023-01-23 06:45 | NUR ---
Patient in room ORTHO 4020. I have received report from Sera ALARCON and had the opportunity to ask questions and assume patient care.
[2023-01-23 10:07] LABS: BASOPHILS % (AUTO) 0.6 % (0-1); EOSINOPHILS % (AUTO) 0.2 % (0-6); LYMPHOCYTES # (AUTO) 0.9 X10'3 (1.1-4.8); LYMPHOCYTES % (AUTO) 12.2 % (21-51); MEAN CORPUSCULAR HEMOGLOBIN 34.3 PG (27.0-31.0); MEAN CORPUSCULAR HGB CONC 33.3 g/dL (33.0-36.5); MEAN PLATELET VOLUME 8.6 FL (7.4-10.4); MONOCYTES # (AUTO) 1.1 X10'3 (0-0.9); MONOCYTES % (AUTO) 14.5 % (2-12); NEUTROPHILS # (AUTO) 5.6 X10'3 (1.8-7.7); NEUTROPHILS % (AUTO) 72.5 % (42-75); PLATELET COUNT 117 X10'3 (140-440); RED BLOOD COUNT 1.89 X10'6 (4.20-5.60); RED CELL DISTRIBUTION WIDTH 14.3 % (11.5-14.5); WHITE BLOOD COUNT 7.7 X10'3 (4.5-11.0)
[2023-01-23 10:14] LABS: HEMATOCRIT 19.4 % (35.0-45.0); HEMOGLOBIN 6.5 g/dl (12.0-16.0)
[2023-01-23 10:20] LABS: ALANINE AMINOTRANSFERASE 11 U/L (12-78); ALBUMIN 2.3 G/DL (3.4-5.0); ALBUMIN/GLOBULIN RATIO 0.7 (1.1-1.5); ALKALINE PHOSPHATASE 60 IU/L (46-116); ANION GAP 7 (8-16); ASPARTATE AMINO TRANSFERASE 28 U/L (10-37); BILIRUBIN,TOTAL 1.1 MG/DL (0.1-1.0); BLOOD UREA NITROGEN 22 MG/DL (7-18); BUN/CREATININE RATIO 38.6 (10.0-20.0); CALCIUM 8.4 MG/DL (8.5-10.1); CHLORIDE 103 MMOL/L (99-107); CREATININE 0.57 MG/DL (0.40-0.90); GLUCOSE 100 MG/DL (70-104); SODIUM 138 MMOL/L (135-145); TOTAL CARBON DIOXIDE 27.7 MMOL/L (24-32); TOTAL PROTEIN 5.4 G/DL (6.4-8.2); eCRCL 53 ML/MIN; eGFR > 90 ML/MIN
--- NOTE | 2023-01-23 10:34 | NUR ---
milton HERNANDEZ regarding critical lab value - critical h&h 20A Irlanda Moore 6.5 /19.4 - [place] [id number]
[2023-01-23] MEDS: normal saline 1000ml 1,000 ML IV SCH (11:00)
--- NOTE | 2023-01-23 18:21 | NUR ---
Patient extremely disoriented and confused of people places and things. one unit of blood received on day shift and tolerated well. no adverse reactions to blood. Ordered H&H to be re-checked at 2200 this evening incase another unit needs to be given per MD. Patients catheter in place with good output. unable to get up with PT r/t combativeness to staff. All medications tolerated. All safety measures in place and call light in reach. will continue to monitor.
[2023-01-23 20:14] LABS: HEMATOCRIT 24.1 % (35.0-45.0); HEMOGLOBIN 8.1 g/dl (12.0-16.0); MEAN CORPUSCULAR HEMOGLOBIN 33.3 PG (27.0-31.0); MEAN CORPUSCULAR HGB CONC 33.8 g/dL (33.0-36.5); MEAN CORPUSCULAR VOLUME 98.7 FL (78-98); MEAN PLATELET VOLUME 8.1 FL (7.4-10.4); PLATELET COUNT 127 X10'3 (140-440); RED BLOOD COUNT 2.44 X10'6 (4.20-5.60); RED CELL DISTRIBUTION WIDTH 16.1 % (11.5-14.5); WHITE BLOOD COUNT 7.7 X10'3 (4.5-11.0)
[2023-01-23] MEDS: enoxaparin 40mg/0.4ml syringe SQ SCH (21:07)
--- NOTE | 2023-01-23 21:08 | NUR ---
CALLED DR. PANDEY ADVISED TO HOLD [employer].
[2023-01-23] MEDS: HYDROcodone/acetaminophen 5mg/325mg tablet PO PRN (21:11)
[2023-01-24] MEDS: HYDROcodone/acetaminophen 5mg/325mg tablet PO PRN ×3 (05:09→17:09)
[2023-01-24 05:58] LABS: BASOPHILS % (AUTO) 0.6 % (0-1); EOSINOPHILS # (AUTO) 0.1 X10'3 (0-0.9); EOSINOPHILS % (AUTO) 0.7 % (0-6); HEMATOCRIT 22.9 % (35.0-45.0); HEMOGLOBIN 7.8 g/dl (12.0-16.0); MEAN CORPUSCULAR HEMOGLOBIN 33.8 PG (27.0-31.0); MEAN CORPUSCULAR HGB CONC 34.2 g/dL (33.0-36.5); MEAN CORPUSCULAR VOLUME 98.8 FL (78-98); MONOCYTES # (AUTO) 1.2 X10'3 (0-0.9); NEUTROPHILS # (AUTO) 5.2 X10'3 (1.8-7.7); NEUTROPHILS % (AUTO) 69.7 % (42-75); PLATELET COUNT 138 X10'3 (140-440); RED BLOOD COUNT 2.31 X10'6 (4.20-5.60); RED CELL DISTRIBUTION WIDTH 16.3 % (11.5-14.5); WHITE BLOOD COUNT 7.4 X10'3 (4.5-11.0)
[2023-01-24 06:00] VITALS: BP 111/35; PULSE 98; RESP 16; TEMP 98.2; O2SAT 95
[2023-01-24 06:27] LABS: ALANINE AMINOTRANSFERASE 11 U/L (12-78); ALBUMIN 2.3 G/DL (3.4-5.0); ALBUMIN/GLOBULIN RATIO 0.7 (1.1-1.5); ALKALINE PHOSPHATASE 61 IU/L (46-116); ANION GAP 6 (8-16); ASPARTATE AMINO TRANSFERASE 27 U/L (10-37); BILIRUBIN,TOTAL 2.2 MG/DL (0.1-1.0); BLOOD UREA NITROGEN 19 MG/DL (7-18); BUN/CREATININE RATIO 28.8 (10.0-20.0); CALCIUM 8.4 MG/DL (8.5-10.1); CHLORIDE 104 MMOL/L (99-107); CREATININE 0.66 MG/DL (0.40-0.90); GLUCOSE 86 MG/DL (70-104); POTASSIUM 3.4 MMOL/L (3.5-5.1); SODIUM 136 MMOL/L (135-145); TOTAL CARBON DIOXIDE 26.3 MMOL/L (24-32); TOTAL PROTEIN 5.6 G/DL (6.4-8.2); eCRCL 46 ML/MIN; eGFR 85 ML/MIN
--- NOTE | 2023-01-24 06:51 | NUR ---
Patient in room ORTHO 4009. I have received report from DORIAN Bray, and had the opportunity to ask questions and assume patient care.
[2023-01-24 08:23] LABS: ANISOCYTOSIS 1+; PLATELET ESTIMATE DECREASED; TOTAL CELLS COUNTED 100
[2023-01-24 08:24] LABS: POLYCHROMASIA FEW; SMUDGE CELLS 1+
[2023-01-24 10:00] VITALS: BP 84/56; PULSE 90; RESP 18; TEMP 98.1; O2SAT 96
[2023-01-24] MEDS: normal saline 1000ml 1,000 ML IV SCH (10:00)
[2023-01-24] MEDS ORDERED: aspirin 81mg, enteric-coated 1 TAB TABLET.DR PO ONE (10:27)
[2023-01-24] MEDS: JUVEN Shake w/Arg/Glut/Ca2+Bmb (Juven 19.3gm) pkt 240ml PO SCH ×2 (13:00→18:00)
--- NOTE | 2023-01-24 13:14 | NUR ---
PRESSURE ULCER EDUCATION: DEFINITION: A pressure ulcer is an area of skin that breaks down when you stay in one position too long. The constant pressure against the skin reduces the blood flow to that area and the affected tissue dies. CAUSES: "Being bedridden or in a wheelchair "Fragile skin "Having a chronic condition, such as diabetes or vascular disease "Inability to move certain parts of your body without assistance "Older age "Incontinence of urine or stool SYMPTOMS: "A reddened area that DOES NOT turn white when pressed on - this can be the beginning of a pressure ulcer "A blister, deep sore or a crater - these can be advanced pressure ulcers FIRST AID: "Relieve the pressure on this area "Keep the area clean and dry "Call your primary doctor if you see any of the above symptoms "DO NOT massage the area "DO NOT use a donut shaped or ring shaped pillow- these actually interfere with the blood flow and cause complications PREVENTION: "Check for pressure ulcers everyday "Change position at least every two hours to relieve pressure "Use items that help relieve pressure- pillows, sheepskin, foam padding, and powders. "Keep skin clean and dry "Eat healthy well balanced meals "Exercise daily IF YOU SEE ANY OF THESE SYMPTOMS WHILE IN THE HOSPITAL - TELL YOUR NURSE IMMEDIATELY. IF YOU SEE ANY OF THESE SYMPTOMS WHILE AT HOME OR HAVE ANY QUESTIONS OR CONCERNS ABOUT PRESSURE ULCERS - CALL YOUR PRIMARY DOCTOR IMMEDIATELY. Addendum: 01/24/23 at 1314 by John Timmons RN Amended: Links added.
[2023-01-24] MEDS ORDERED: potassium Cl 40MEQ/1/2NS 520ml 520 ML IV PRN (16:20)
[2023-01-24] MEDS ORDERED: magnesium 2GM in 50ml NS 50 ML IV PRN (16:20)
[2023-01-24] MEDS ORDERED: potassium Cl 20 mEq SR tablet PO PRN (16:20)
[2023-01-24] MEDS ORDERED: magnesium Cl slow-release 64mg tablet PO PRN (16:20)
[2023-01-24] MEDS ORDERED: magnesium 4gm in 100ml NS 100 ML IV PRN (16:20)
[2023-01-24] MEDS: potassium Cl 20 mEq SR tablet PO PRN ×2 (17:02→21:39)
[2023-01-24 18:00] VITALS: BP 103/58; PULSE 88; RESP 13; TEMP 97.5; O2SAT 98
--- NOTE | 2023-01-24 18:00 | NUR ---
Patient report given, questions answered & plan of care reviewed with DORIAN Bray.
[2023-01-24] MEDS ORDERED: triamcinolone acet 0.1% cream 15gm TP SCH (20:00)
[2023-01-24] MEDS ORDERED: beta-carotene(A) w/C & E + minerals tab PO SCH (21:00)
[2023-01-24] MEDS: enoxaparin 40mg/0.4ml syringe SQ SCH (21:39)
[2023-01-24 22:00] VITALS: BP 112/57; PULSE 92; RESP 20; TEMP 98.4; O2SAT 96
[2023-01-24] MEDS: divalproex sod 125mg tablet.DR PO SCH (22:25)
[2023-01-24] MEDS: Melatonin 3mg tablet PO SCH (22:30)
[2023-01-25] MEDS: normal saline 1000ml 1,000 ML IV SCH (04:17)
[2023-01-25 06:00] VITALS: BP 117/60; PULSE 114; RESP 15; TEMP 98
--- NOTE | 2023-01-25 06:26 | NUR ---
Patient in room ORTHO 4009A. I have received report from DORIAN Bray and had the opportunity to ask questions and assume patient care.
[2023-01-25] MEDS: JUVEN Shake w/Arg/Glut/Ca2+Bmb (Juven 19.3gm) pkt 240ml PO SCH ×3 (08:00→18:00)
[2023-01-25 10:00] VITALS: BP 112/46; PULSE 93; RESP 18; TEMP 98.9; O2SAT 96
[2023-01-25] MEDS: CefTRIAXone/D5W-Rocephin 1gm 50 ML IV SCH (10:23)
[2023-01-25] MEDS ORDERED: cyanocobalamin 500mcg tablet PO ONE (10:27)
[2023-01-25 12:46] LABS: BASOPHILS % (AUTO) 0.2 % (0-1); EOSINOPHILS % (AUTO) 0.3 % (0-6); HEMATOCRIT 24.1 % (35.0-45.0); HEMOGLOBIN 8.2 g/dl (12.0-16.0); LYMPHOCYTES # (AUTO) 1.3 X10'3 (1.1-4.8); LYMPHOCYTES % (AUTO) 16.1 % (21-51); MEAN CORPUSCULAR HEMOGLOBIN 33.8 PG (27.0-31.0); MEAN CORPUSCULAR HGB CONC 33.8 g/dL (33.0-36.5); MEAN CORPUSCULAR VOLUME 99.8 FL (78-98); MEAN PLATELET VOLUME 7.6 FL (7.4-10.4); MONOCYTES # (AUTO) 1.5 X10'3 (0-0.9); MONOCYTES % (AUTO) 17.7 % (2-12); NEUTROPHILS # (AUTO) 5.4 X10'3 (1.8-7.7); NEUTROPHILS % (AUTO) 65.7 % (42-75); PLATELET COUNT 167 X10'3 (140-440); RED BLOOD COUNT 2.42 X10'6 (4.20-5.60); RED CELL DISTRIBUTION WIDTH 15.7 % (11.5-14.5); WHITE BLOOD COUNT 8.3 X10'3 (4.5-11.0)
[2023-01-25] MEDS ORDERED: triamcinolone acet 0.1% cream 15gm TP PRN (12:50)
[2023-01-25 12:59] LABS: ANION GAP 3 (8-16); BLOOD UREA NITROGEN 14 MG/DL (7-18); BUN/CREATININE RATIO 22.6 (10.0-20.0); CHLORIDE 105 MMOL/L (99-107); CREATININE 0.62 MG/DL (0.40-0.90); GLUCOSE 114 MG/DL (70-104); POTASSIUM 4.2 MMOL/L (3.5-5.1); SODIUM 134 MMOL/L (135-145); TOTAL CARBON DIOXIDE 25.8 MMOL/L (24-32); eCRCL 49 ML/MIN; eGFR > 90 ML/MIN
[2023-01-25 13:05] LABS: PLATELET ESTIMATE NORMAL; TOTAL CELLS COUNTED 100
[2023-01-25 13:06] LABS: POIKILOCYTOSIS FEW; POLYCHROMASIA FEW; ROULEAUX 1+
[2023-01-25] MEDS: morphine 2 MG/ML inj. syringe IV PRN (13:08)
[2023-01-25] MEDS: divalproex sod 125mg tablet.DR PO SCH ×2 (13:32→20:00)
[2023-01-25] MEDS: pantoprazole 40mg Tablet.DR PO SCH (13:34)
[2023-01-25] MEDS: aspirin 81mg, enteric-coated 1 TAB TABLET.DR PO SCH (13:35)
[2023-01-25] MEDS: cyanocobalamin 500mcg tablet PO SCH (13:36)
[2023-01-25] MEDS: cholecalciferol (vitamin D3) 1,000 unit (25mcg) tablet PO SCH (13:37)
[2023-01-25] MEDS: magnesium oxide 400mg tablet PO SCH (13:37)
--- NOTE | 2023-01-25 13:43 | NUR ---
Initial: Pt DX intertrochanteric fracture of right femur. Pt remains Aox1 confused with a hx of dementia thus not appropriate for interview. Pt continues on a regular diet with average PO intake of 36% x 9 meals with minimal assistance. PO intake met ~65% of estimated kcal needs and 59% of estimated protein needs. Noted PA ordered Eusebio Shake TIDWM; should receive first one today.LBM on 01/21 per EMR. Recommend prunes and prune juice for next two meals;communicated with dietary. Will continue to monitor and make recommendations as appropriate. Recommendations: 1.continue regular diet 2.continue Eusebio Shake TIDWM 3.routine bowel care; sent prunes and prune juice for next two meals 4.weekly scaled wts Addendum: 01/25/23 at [address] Amended: Links added.
--- NOTE | 2023-01-25 17:35 | NUR ---
To Dr Clayton PAGER ID: [phone] MESSAGE: re: [place] Moore [id number] Pt has not had BM in 3-4 days. May we have something for her?(pt is also taking narcotics, prn) ThanksDanya
[2023-01-25 18:00] VITALS: BP 108/41; PULSE 94; RESP 18; TEMP 98.4; O2SAT 98
[2023-01-25 19:18] VITALS: RESP 14
[2023-01-25] MEDS: Melatonin 3mg tablet PO SCH (21:00)
[2023-01-25] MEDS: enoxaparin 40mg/0.4ml syringe SQ SCH (21:24)
[2023-01-25 22:00] VITALS: BP 105/49; PULSE 100; RESP 13; TEMP 97.9; O2SAT 96
[2023-01-26] MEDS: HYDROcodone/acetaminophen 5mg/325mg tablet PO PRN ×2 (04:58→20:47)
[2023-01-26] MEDS: normal saline 1000ml 1,000 ML IV SCH ×2 (05:18→20:53)
[2023-01-26 06:00] VITALS: BP 107/50; PULSE 102; RESP 14; TEMP 98.5; O2SAT 96
--- NOTE | 2023-01-26 06:27 | NUR ---
Patient in room ORTHO 4009. I have received report from DORIAN Bray, and had the opportunity to ask questions and assume patient care. Addendum: 01/26/23 at 0632 by Danya Elise RN Patient in room ORTHO 4007E. I have received report from DORIAN Bray, and had the opportunity to ask questions and assume patient care.
[2023-01-26] MEDS: pantoprazole 40mg Tablet.DR PO SCH (07:07)
[2023-01-26 08:00] VITALS: RESP 16; O2SAT 96
[2023-01-26] MEDS: CefTRIAXone/D5W-Rocephin 1gm 50 ML IV SCH (08:18)
[2023-01-26] MEDS: divalproex sod 125mg tablet.DR PO SCH ×2 (08:32→20:47)
[2023-01-26] MEDS: aspirin 81mg, enteric-coated 1 TAB TABLET.DR PO SCH (08:32)
[2023-01-26] MEDS: magnesium oxide 400mg tablet PO SCH (08:33)
[2023-01-26] MEDS: cyanocobalamin 500mcg tablet PO SCH (08:34)
[2023-01-26] MEDS: cholecalciferol (vitamin D3) 1,000 unit (25mcg) tablet PO SCH (08:35)
[2023-01-26] MEDS: JUVEN Shake w/Arg/Glut/Ca2+Bmb (Juven 19.3gm) pkt 240ml PO SCH ×3 (08:36→18:00)
--- NOTE | 2023-01-26 09:33 | NUR ---
Patient is unable to answer A&O questions due to difficulty with hearing. Addendum: 01/26/23 at 0956 by Laura NEGRON Amended: Links added.
[2023-01-26 10:00] VITALS: BP 100/52; PULSE 83; RESP 18; TEMP 98.5; O2SAT 96
[2023-01-26 11:21] LABS: BASOPHILS % (AUTO) 0.4 % (0-1); EOSINOPHILS # (AUTO) 0.1 X10'3 (0-0.9); EOSINOPHILS % (AUTO) 1.2 % (0-6); LYMPHOCYTES # (AUTO) 1.3 X10'3 (1.1-4.8); LYMPHOCYTES % (AUTO) 17.4 % (21-51); MEAN CORPUSCULAR HEMOGLOBIN 33.7 PG (27.0-31.0); MEAN CORPUSCULAR HGB CONC 33.4 g/dL (33.0-36.5); MEAN CORPUSCULAR VOLUME 100.9 FL (78-98); MEAN PLATELET VOLUME 7.5 FL (7.4-10.4); MONOCYTES # (AUTO) 1.5 X10'3 (0-0.9); MONOCYTES % (AUTO) 21.1 % (2-12); NEUTROPHILS # (AUTO) 4.4 X10'3 (1.8-7.7); NEUTROPHILS % (AUTO) 59.9 % (42-75); PLATELET COUNT 199 X10'3 (140-440); RED BLOOD COUNT 2.38 X10'6 (4.20-5.60); RED CELL DISTRIBUTION WIDTH 15.6 % (11.5-14.5); WHITE BLOOD COUNT 7.4 X10'3 (4.5-11.0)
[2023-01-26 11:39] LABS: PLATELET ESTIMATE NORMAL; POIKILOCYTOSIS FEW; POLYCHROMASIA FEW; TOTAL CELLS COUNTED 100
[2023-01-26 11:43] LABS: ALBUMIN 1.9 G/DL (3.4-5.0); ANION GAP 6 (8-16); BLOOD UREA NITROGEN 15 MG/DL (7-18); BUN/CREATININE RATIO 24.6 (10.0-20.0); CALCIUM 8.2 MG/DL (8.5-10.1); CHLORIDE 101 MMOL/L (99-107); CREATININE 0.61 MG/DL (0.40-0.90); GLUCOSE 111 MG/DL (70-104); POTASSIUM 3.7 MMOL/L (3.5-5.1); SODIUM 135 MMOL/L (135-145); TOTAL CARBON DIOXIDE 27.9 MMOL/L (24-32); eCRCL 50 ML/MIN; eGFR > 90 ML/MIN
[2023-01-26 11:44] LABS: ROULEAUX 1+
[2023-01-26 18:00] VITALS: BP 179/62; PULSE 92; RESP 18; TEMP 98; O2SAT 99
--- NOTE | 2023-01-26 18:30 | NUR ---
Problems reprioritized. Patient report given, questions answered & plan of care reviewed with DORIAN Damian.
[2023-01-26 20:00] VITALS: RESP 16; O2SAT 99
[2023-01-26] MEDS: sennosides/docusate sodium tablet PO SCH (20:47)
[2023-01-26] MEDS: Melatonin 3mg tablet PO SCH (20:47)
[2023-01-26] MEDS: magnesium hydroxide 30ml (MOM) UD suspension PO SCH (20:48)
[2023-01-26] MEDS: enoxaparin 40mg/0.4ml syringe SQ SCH (20:49)
[2023-01-26 22:00] VITALS: BP 106/42; PULSE 92; RESP 16; TEMP 97.8; O2SAT 96
[2023-01-27 06:00] VITALS: BP 98/54; PULSE 89; RESP 16; TEMP 98.2; O2SAT 98
--- NOTE | 2023-01-27 06:18 | NUR ---
reported to days. noted pt resting, tabs alarm on. brandt draining well. anticipate PT to see patient this am. will give norco before PT.
[2023-01-27] MEDS: JUVEN Shake w/Arg/Glut/Ca2+Bmb (Juven 19.3gm) pkt 240ml PO SCH ×3 (08:00→18:00)
[2023-01-27] MEDS: CefTRIAXone/D5W-Rocephin 1gm 50 ML IV SCH (09:07)
[2023-01-27] MEDS: magnesium hydroxide 30ml (MOM) UD suspension PO SCH (09:10)
[2023-01-27] MEDS: pantoprazole 40mg Tablet.DR PO SCH (09:16)
[2023-01-27] MEDS: magnesium oxide 400mg tablet PO SCH (09:17)
[2023-01-27] MEDS: cyanocobalamin 500mcg tablet PO SCH (09:17)
[2023-01-27] MEDS: aspirin 81mg, enteric-coated 1 TAB TABLET.DR PO SCH ×2 (09:17→19:09)
[2023-01-27] MEDS: divalproex sod 125mg tablet.DR PO SCH ×2 (09:17→19:07)
[2023-01-27] MEDS: sennosides/docusate sodium tablet PO SCH ×2 (09:17→19:15)
[2023-01-27] MEDS: cholecalciferol (vitamin D3) 1,000 unit (25mcg) tablet PO SCH (09:18)
[2023-01-27 10:38] VITALS: BP 131/61; PULSE 94; RESP 18; TEMP 97.8; O2SAT 96
[2023-01-27] MEDS: normal saline 1000ml 1,000 ML IV SCH (17:28)
[2023-01-27] MEDS: HYDROcodone/acetaminophen 10/325mg tab PO PRN ×2 (17:28→22:47)
[2023-01-27 18:00] VITALS: BP 142/86; PULSE 84; RESP 17; TEMP 97.9; O2SAT 96
[2023-01-27] MEDS: morphine 2 MG/ML inj. syringe IV PRN (18:02)
[2023-01-27] MEDS: apixaban 2.5mg tablet PO SCH (20:00)
[2023-01-27] MEDS: Melatonin 3mg tablet PO SCH (21:00)
[2023-01-27 22:00] VITALS: BP 93/48; PULSE 89; RESP 16; TEMP 97.8; O2SAT 95
[2023-01-28 06:00] VITALS: BP 104/54; PULSE 80; RESP 16; TEMP 97.5; O2SAT 98
--- NOTE | 2023-01-28 06:25 | NUR ---
reported to days. noted pt resting. unwilling to take po meds at this time. notified day RN that morphine is available.
[2023-01-28 08:00] VITALS: RESP 11; O2SAT 92
[2023-01-28] MEDS: HYDROcodone/acetaminophen 10/325mg tab PO PRN ×4 (08:20→21:14)
[2023-01-28] MEDS: pantoprazole 40mg Tablet.DR PO SCH (08:20)
[2023-01-28] MEDS: aspirin 81mg, enteric-coated 1 TAB TABLET.DR PO SCH (08:21)
[2023-01-28] MEDS: divalproex sod 125mg tablet.DR PO SCH ×2 (08:21→19:52)
[2023-01-28] MEDS: apixaban 2.5mg tablet PO SCH ×2 (08:21→19:51)
[2023-01-28] MEDS: magnesium hydroxide 30ml (MOM) UD suspension PO SCH (08:24)
[2023-01-28] MEDS: cyanocobalamin 500mcg tablet PO SCH (08:28)
[2023-01-28] MEDS: sennosides/docusate sodium tablet PO SCH (08:28)
[2023-01-28] MEDS: magnesium oxide 400mg tablet PO SCH (08:28)
[2023-01-28] MEDS: cholecalciferol (vitamin D3) 1,000 unit (25mcg) tablet PO SCH (08:28)
[2023-01-28] MEDS: CefTRIAXone/D5W-Rocephin 1gm 50 ML IV SCH (08:28)
[2023-01-28] MEDS: JUVEN Shake w/Arg/Glut/Ca2+Bmb (Juven 19.3gm) pkt 240ml PO SCH ×3 (08:28→17:32)
[2023-01-28 10:00] VITALS: BP 97/46; PULSE 64; RESP 11; TEMP 97.3; O2SAT 92
--- NOTE | 2023-01-28 11:35 | NUR ---
Reassessment: Per EMR pt remains A/O x 1 and confused. Pt continues on regular diet, documented with average 38% PO intake of meals and average 54% PO intake of Eusebio shake TID d/t two refusals since 01/26. Combined PO intake of meals and ONS meets 92% estimated energy needs and 73% estimated protein needs. Recommend Ensure High Protein BID to assist with fully meeting estimated nutrient needs, to be sent pending physician approval in EMR. LBM 01/27 moderate in size per EMR, possibly first BM since admit. Pt was started on routine bowel care 01/26. Will continue to follow and monitor need for further nutrition intervention. Recommendations: 1. Continue regular diet 2. Eusebio Shake TIDWM, consider changing to BID per Damico recommendations; Ensure High Protein BIDBD, pending physician approval in EMR 3. Encourage PO intake and assist with meals d/t confusion 4. Routine bowel care 5. Weekly scaled wts Addendum: 01/28/23 at [address] Amended: Links added.
[2023-01-28] MEDS: normal saline 1000ml 1,000 ML IV SCH (15:06)
[2023-01-28] MEDS: lactose-reduced food (Ensure High Protein) 237ml bottle PO SCH (17:30)
[2023-01-28 18:00] VITALS: BP 112/51; PULSE 81; RESP 14; TEMP 98.1; O2SAT 94
--- NOTE | 2023-01-28 18:00 | NUR ---
Patient in room ORTHO 4009. I have received report from CIARA Tineo and had the opportunity to ask questions and assume patient care.
--- NOTE | 2023-01-28 18:19 | NUR ---
Problems reprioritized. Patient report given, questions answered & plan of care reviewed with Abeba ALARCON.
[2023-01-28] MEDS: QUEtiapine 25mg tablet PO SCH (19:52)
[2023-01-28] MEDS: metoprolol tartrate 12.5mg (1/2 tablet) PO SCH (19:52)
[2023-01-28] MEDS: Melatonin 3mg tablet PO SCH (21:00)
[2023-01-28] MEDS: morphine 2 MG/ML inj. syringe IV PRN (21:47)
[2023-01-28 22:00] VITALS: BP 117/52; PULSE 92; RESP 22; TEMP 97.5
[2023-01-29 06:00] VITALS: BP 198/54; PULSE 54; RESP 16; TEMP 97.5; O2SAT 96
--- NOTE | 2023-01-29 06:21 | NUR ---
Problems reprioritized. Patient report given, questions answered & plan of care reviewed with CIARA Espinoza.
[2023-01-29] MEDS: normal saline 1000ml 1,000 ML IV SCH (07:00)
[2023-01-29] MEDS: lactose-reduced food (Ensure High Protein) 237ml bottle PO SCH ×2 (07:30→17:40)
[2023-01-29] MEDS: pantoprazole 40mg Tablet.DR PO SCH (07:30)
[2023-01-29] MEDS: JUVEN Shake w/Arg/Glut/Ca2+Bmb (Juven 19.3gm) pkt 240ml PO SCH ×3 (08:00→18:00)
[2023-01-29] MEDS: sennosides/docusate sodium tablet PO SCH (08:00)
[2023-01-29] MEDS: CefTRIAXone/D5W-Rocephin 1gm 50 ML IV SCH (08:27)
[2023-01-29] MEDS: metoprolol tartrate 12.5mg (1/2 tablet) PO SCH ×2 (09:01→19:51)
[2023-01-29] MEDS: divalproex sod 125mg tablet.DR PO SCH ×2 (09:01→19:44)
[2023-01-29] MEDS: apixaban 2.5mg tablet PO SCH ×2 (09:01→19:44)
[2023-01-29] MEDS: aspirin 81mg, enteric-coated 1 TAB TABLET.DR PO SCH (09:01)
[2023-01-29] MEDS: atorvastatin 20mg tablet PO SCH (09:01)
[2023-01-29] MEDS: QUEtiapine 25mg tablet PO SCH ×2 (09:01→19:45)
[2023-01-29] MEDS: cholecalciferol (vitamin D3) 1,000 unit (25mcg) tablet PO SCH (09:05)
[2023-01-29] MEDS: magnesium oxide 400mg tablet PO SCH (09:05)
[2023-01-29] MEDS: cyanocobalamin 500mcg tablet PO SCH (09:05)
[2023-01-29 10:00] VITALS: BP 101/49; PULSE 82; RESP 16; TEMP 97.8; O2SAT 97
[2023-01-29] MEDS: morphine 2 MG/ML inj. syringe IV PRN (16:36)
--- NOTE | 2023-01-29 17:10 | NUR ---
Agree with assessment by Eliazar URBINA
[2023-01-29 18:00] VITALS: BP 107/59; PULSE 84; RESP 16; TEMP 97.9; O2SAT 96
--- NOTE | 2023-01-29 18:11 | NUR ---
Problems reprioritized. Patient report given, questions answered & plan of care reviewed with DORIAN aVsquez.
--- NOTE | 2023-01-29 18:20 | NUR ---
Patient in room ORTHO 4009. I have received report from Eliazar URBINA and had the opportunity to ask questions and assume patient care.
[2023-01-29] MEDS: HYDROcodone/acetaminophen 10/325mg tab PO PRN (18:56)
[2023-01-29 19:10] VITALS: RESP 16; O2SAT 96
[2023-01-29] MEDS: Melatonin 3mg tablet PO SCH (19:44)
[2023-01-29 22:00] VITALS: BP 98/48; PULSE 84; RESP 16; TEMP 98.3; O2SAT 97
[2023-01-30] MEDS: normal saline 1000ml 1,000 ML IV SCH ×2 (03:00→23:00)
[2023-01-30 03:41] VITALS: O2SAT 96
[2023-01-30 06:00] VITALS: BP 107/51; PULSE 91; RESP 16; TEMP 97.9; O2SAT 98
--- NOTE | 2023-01-30 06:30 | NUR ---
Patient in room ORTHO 4009. I have received report from DORIAN Vasquez and had the opportunity to ask questions and assume patient care.
--- NOTE | 2023-01-30 06:41 | NUR ---
Problems reprioritized. Patient report given, questions answered & plan of care reviewed with Eliazar URBINA.
[2023-01-30] MEDS: lactose-reduced food (Ensure High Protein) 237ml bottle PO SCH ×2 (07:30→17:53)
[2023-01-30 08:00] VITALS: RESP 16; O2SAT 98
[2023-01-30] MEDS: JUVEN Shake w/Arg/Glut/Ca2+Bmb (Juven 19.3gm) pkt 240ml PO SCH ×3 (08:00→18:20)
[2023-01-30] MEDS: metoprolol tartrate 12.5mg (1/2 tablet) PO SCH ×2 (08:00→20:19)
[2023-01-30] MEDS: aspirin 81mg, enteric-coated 1 TAB TABLET.DR PO SCH (08:46)
[2023-01-30] MEDS: atorvastatin 20mg tablet PO SCH (08:46)
[2023-01-30] MEDS: QUEtiapine 25mg tablet PO SCH ×2 (08:46→20:14)
[2023-01-30] MEDS: cyanocobalamin 500mcg tablet PO SCH (08:47)
[2023-01-30] MEDS: pantoprazole 40mg Tablet.DR PO SCH (08:47)
[2023-01-30] MEDS: divalproex sod 125mg tablet.DR PO SCH ×2 (08:47→20:14)
[2023-01-30] MEDS: cholecalciferol (vitamin D3) 1,000 unit (25mcg) tablet PO SCH (08:47)
[2023-01-30] MEDS: apixaban 2.5mg tablet PO SCH ×2 (08:47→20:14)
[2023-01-30] MEDS: magnesium oxide 400mg tablet PO SCH (08:47)
[2023-01-30] MEDS: sennosides/docusate sodium tablet PO SCH (08:48)
[2023-01-30 10:00] VITALS: BP 101/43; PULSE 61; RESP 23; TEMP 98.7; O2SAT 96
[2023-01-30 18:00] VITALS: BP 100/43; PULSE 78; RESP 14; TEMP 98.3; O2SAT 97
--- NOTE | 2023-01-30 18:36 | NUR ---
Problems reprioritized. Patient report given, questions answered & plan of care reviewed with DORIAN Bray.
[2023-01-30 22:00] VITALS: BP 114/60; PULSE 77; RESP 14; TEMP 97.8; O2SAT 96
[2023-01-31] MEDS: Melatonin 3mg tablet PO SCH (00:40)
[2023-01-31 06:00] VITALS: BP 107/62; PULSE 82; RESP 14; TEMP 98; O2SAT 93
--- NOTE | 2023-01-31 06:20 | NUR ---
Patient in room ORTHO 4009. I have received report from DORIAN Bray and had the opportunity to ask questions and assume patient care.
[2023-01-31] MEDS: lactose-reduced food (Ensure High Protein) 237ml bottle PO SCH (07:30)
[2023-01-31 08:00] VITALS: RESP 14; O2SAT 93
[2023-01-31] MEDS: JUVEN Shake w/Arg/Glut/Ca2+Bmb (Juven 19.3gm) pkt 240ml PO SCH (08:00)
[2023-01-31] MEDS: sennosides/docusate sodium tablet PO SCH (08:54)
[2023-01-31] MEDS: atorvastatin 20mg tablet PO SCH (08:54)
[2023-01-31] MEDS: aspirin 81mg, enteric-coated 1 TAB TABLET.DR PO SCH (08:54)
[2023-01-31] MEDS: apixaban 2.5mg tablet PO SCH (08:54)
[2023-01-31] MEDS: pantoprazole 40mg Tablet.DR PO SCH (08:54)
[2023-01-31] MEDS: HYDROcodone/acetaminophen 10/325mg tab PO PRN (08:54)
[2023-01-31] MEDS: divalproex sod 125mg tablet.DR PO SCH (08:54)
[2023-01-31] MEDS: QUEtiapine 25mg tablet PO SCH (08:54)
[2023-01-31] MEDS: magnesium oxide 400mg tablet PO SCH (08:54)
[2023-01-31 08:55] VITALS: BP_SYST 107; PULSE 82
[2023-01-31] MEDS: cholecalciferol (vitamin D3) 1,000 unit (25mcg) tablet PO SCH (08:55)
[2023-01-31] MEDS: cyanocobalamin 500mcg tablet PO SCH (08:55)
[2023-01-31] MEDS: metoprolol tartrate 12.5mg (1/2 tablet) PO SCH (08:55)
[2023-01-31 09:54] VITALS: RESP 16
[2023-01-31] MEDS ORDERED: DIVA125T9 PO (12:34)
[2023-01-31] MEDS ORDERED: LOP12.5T PO (12:34)
[2023-01-31] MEDS ORDERED: ATOR20TA66 PO (12:34)
[2023-01-31] MEDS ORDERED: APIX2.5T PO (12:34)
[2023-01-31] MEDS ORDERED: HYDR-3964 PO (12:34)
[2023-01-31] MEDS ORDERED: ACET-1008 PO (12:34)
[2023-01-31] MEDS ORDERED: QUET25TA36 PO (12:34)
--- NOTE | 2023-01-31 14:13 | NUR ---
PRESSURE ULCER EDUCATION: DEFINITION: A pressure ulcer is an area of skin that breaks down when you stay in one position too long. The constant pressure against the skin reduces the blood flow to that area and the affected tissue dies. CAUSES: "Being bedridden or in a wheelchair "Fragile skin "Having a chronic condition, such as diabetes or vascular disease "Inability to move certain parts of your body without assistance "Older age "Incontinence of urine or stool SYMPTOMS: "A reddened area that DOES NOT turn white when pressed on - this can be the beginning of a pressure ulcer "A blister, deep sore or a crater - these can be advanced pressure ulcers FIRST AID: "Relieve the pressure on this area "Keep the area clean and dry "Call your primary doctor if you see any of the above symptoms "DO NOT massage the area "DO NOT use a donut shaped or ring shaped pillow- these actually interfere with the blood flow and cause complications PREVENTION: "Check for pressure ulcers everyday "Change position at least every two hours to relieve pressure "Use items that help relieve pressure- pillows, sheepskin, foam padding, and powders. "Keep skin clean and dry "Eat healthy well balanced meals "Exercise daily IF YOU SEE ANY OF THESE SYMPTOMS WHILE IN THE HOSPITAL - TELL YOUR NURSE IMMEDIATELY. IF YOU SEE ANY OF THESE SYMPTOMS WHILE AT HOME OR HAVE ANY QUESTIONS OR CONCERNS ABOUT PRESSURE ULCERS - CALL YOUR PRIMARY DOCTOR IMMEDIATELY. Addendum: 01/31/23 at 1413 by Yvonne Bocanegra LVN Amended: Links added.
--- NOTE | 2023-01-31 15:29 | NUR ---
Pt stable for transfer. IV and brandt d/c prior to d/c. Report called to [facility] and given to CIARA Manning. Patients daughter left with patients personal belongings to take to [facility]. Patient was transported via [employer] personnel in [facility] vehicle to go to [facility].
== END 2023-01-31 15:08 | DRG 480 ==
LOC: ER 01:01 → ED HOLD 03:01 → ORTHO 4S 06:55
PROVIDERS: ADMIT Internal Medicine; ATTEND Internal Medicine
PROC: 0QS606Z Reposition Right Upper Femur with Intramedullary Internal Fixation Device, Open Approach (ICD-10-PCS; principal; 2023-01-21 13:00)
PROC: 30233N1 Transfusion of Nonautologous Red Blood Cells into Peripheral Vein, Percutaneous Approach (ICD-10-PCS; 2023-01-23)
DX: S72.141A Displaced intertrochanteric fracture of right femur, initial encounter for closed fracture (principal); G92.9 Unspecified toxic encephalopathy; N39.0 Urinary tract infection, site not specified; E87.6 Hypokalemia; Z66 Do not resuscitate; I48.91 Unspecified atrial fibrillation; B96.20 Unspecified Escherichia coli [E. coli] as the cause of diseases classified elsewhere; K21.9 Gastro-esophageal reflux disease without esophagitis; I10 Essential (primary) hypertension; D64.9 Anemia, unspecified; F03.90 Unspecified dementia, unspecified severity, without behavioral disturbance, psychotic disturbance, mood disturbance, and anxiety; W18.39XA Other fall on same level, initial encounter; Y93.89 Activity, other specified; Y92.128 Other place in nursing home as the place of occurrence of the external cause; Y99.8 Other external cause status; Z79.01 Long term (current) use of anticoagulants; Z88.2 Allergy status to sulfonamides; Z86.73 Personal history of transient ischemic attack (TIA), and cerebral infarction without residual deficits; Z79.82 Long term (current) use of aspirin; Z79.899 Other long term (current) drug therapy
CPT/HCPCS: 36415; 36430; 71045; 73502; 73503; 73552; 76000; 80048; 80053; 81001; 82948; 85007; 85025; 85027; 85610; 85730; 86885; 86900; 86901; 86920; 87077; 87081; 87088; 87186; 96374; 96375; 97110; 97161; 97530; 97535; 99285; A4314; A4618; A6213; A6258; A7000; C1713; C1758; C1776; G0378; J0690; J0696; J1650; J2270; J2405; J2704; J3010; J3490; J7030; J7040; P9016

== ENCOUNTER 2023-05-01 20:00 | Emergency (ER) | payer MEDICARE ==
[~2023-05-01] VITALS: Ht 157.5 cm; Wt 52.7 kg
[~2023-05-01 20:00] MED LIST changes: +ACET-1008 PO; +APIX2.5T PO; +ATOR20TA66 PO; +DIVA125T9 PO; +HYDR-3964 PO; +LOP12.5T PO; +QUET25TA36 PO
[2023-05-01 20:04] VITALS: TEMP 97.7
[2023-05-01 22:02] LABS: BASOPHILS % (AUTO) 0.6 % (0-1); EOSINOPHILS # (AUTO) 0.1 X10'3 (0-0.9); EOSINOPHILS % (AUTO) 1.6 % (0-6); HEMATOCRIT 36.1 % (35.0-45.0); HEMOGLOBIN 11.6 g/dl (12.0-16.0); LYMPHOCYTES # (AUTO) 1.2 X10'3 (1.1-4.8); LYMPHOCYTES % (AUTO) 21.7 % (21-51); MEAN CORPUSCULAR HEMOGLOBIN 32.1 PG (27.0-31.0); MEAN CORPUSCULAR HGB CONC 32.2 g/dL (33.0-36.5); MEAN CORPUSCULAR VOLUME 99.5 FL (78-98); MEAN PLATELET VOLUME 7.8 FL (7.4-10.4); MONOCYTES % (AUTO) 18.3 % (2-12); NEUTROPHILS # (AUTO) 3.2 X10'3 (1.8-7.7); NEUTROPHILS % (AUTO) 57.8 % (42-75); PLATELET COUNT 203 X10'3 (140-440); RED BLOOD COUNT 3.63 X10'6 (4.20-5.60); RED CELL DISTRIBUTION WIDTH 16.2 % (11.5-14.5); WHITE BLOOD COUNT 5.6 X10'3 (4.5-11.0)
[2023-05-01 22:29] LABS: ALBUMIN 2.4 G/DL (3.4-5.0); ANION GAP 3 (8-16); BLOOD UREA NITROGEN 14 MG/DL (7-18); BUN/CREATININE RATIO 17.5 (10.0-20.0); CALCIUM 8.6 MG/DL (8.5-10.1); CHLORIDE 103 MMOL/L (99-107); GLUCOSE 102 MG/DL (70-104); POTASSIUM 4.4 MMOL/L (3.5-5.1); SODIUM 138 MMOL/L (135-145); eCRCL 39 ML/MIN; eGFR 68 ML/MIN
[2023-05-01 22:56] LABS: BILIRUBIN,URINE NEGATIVE (Neg); CLARITY,URINE CLOUDY (Clear); COLOR,URINE STRAW (Yellow); GLUCOSE, URINE NEGATIVE (Neg); KETONES,URINE NEGATIVE (Neg); LEUKOCYTE ESTERASE ,URINE LARGE (Neg); NITRITES, URINE POSITIVE (Neg); OCCULT BLOOD,URINE NEGATIVE (Neg); PH,URINE 7.5 (4.8-8.0); PROTEIN,URINE NEGATIVE (Neg); UROBILINOGEN,URINE 0.2 E.U/dL (0.2-1.0)
[2023-05-01 23:02] LABS: UA COLLECTION TYPE STRAIGHT CATH
[2023-05-01 23:10] LABS: BACTERIA,URINE 4+ /HPF (Neg); RBC,URINE NONE SEEN /HPF (0-2); SQUAMOUS EPITHELIAL CELL,UR FEW /LPF (FEW); WBC,URINE 30-50 /HPF (0-4)
[2023-05-01] MEDS ORDERED: CEPH-585 PO (23:14)
[2023-05-01 23:15] VITALS: O2SAT 97
[2023-05-01] MEDS: cephalexin 250mg capsule PO ONE (23:28)
[2023-05-01 23:45] VITALS: BP 121/61; PULSE 82; RESP 17
[2023-05-01 23:49] LABS: TOTAL CELLS COUNTED 100
[2023-05-01 23:55] LABS: ANISOCYTOSIS 1+; PLATELET ESTIMATE NORMAL
[2023-05-01 23:57] LABS: ELLIPTOCYTES FEW; POIKILOCYTOSIS FEW
== END 2023-05-02 00:08 | disposition home or self-care (01) ==
LOC: ER 20:00
DX: M79.651 Pain in right thigh (principal); F03.90 Unspecified dementia, unspecified severity, without behavioral disturbance, psychotic disturbance, mood disturbance, and anxiety; W19.XXXA Unspecified fall, initial encounter; Y93.89 Activity, other specified; Y92.89 Other specified places as the place of occurrence of the external cause; Y99.8 Other external cause status
CPT/HCPCS: 36415; 70450; 71045; 73501; 73552; 73610; 73630; 80048; 81001; 82948; 84484; 85007; 85025; 87077; 87088; 87186; 93005; 99285; C1758

== ENCOUNTER 2023-07-01 06:34 | Emergency (ER) | payer MEDICARE ==
[~2023-07-01] VITALS: Ht 157.5 cm; Wt 47.0 kg
[~2023-07-01 06:34] MED LIST changes: +CEPH-585 PO
[2023-07-01 06:37] VITALS: TEMP 98.1
[2023-07-01] MEDS: morphine 2 MG/ML inj. syringe IV PRN (07:38)
[2023-07-01] MEDS: ondansetron/PF 4mg/2ml inj IV ONE (07:38)
[2023-07-01 09:09] LABS: BASOPHILS % (AUTO) 0.6 % (0-1); EOSINOPHILS % (AUTO) 0.3 % (0-6); HEMATOCRIT 40.7 % (35.0-45.0); HEMOGLOBIN 13.7 g/dl (12.0-16.0); LYMPHOCYTES # (AUTO) 0.9 X10'3 (1.1-4.8); LYMPHOCYTES % (AUTO) 12.5 % (21-51); MEAN CORPUSCULAR HEMOGLOBIN 32.8 PG (27.0-31.0); MEAN CORPUSCULAR HGB CONC 33.7 g/dL (33.0-36.5); MEAN CORPUSCULAR VOLUME 97.2 FL (78-98); MEAN PLATELET VOLUME 8.3 FL (7.4-10.4); MONOCYTES % (AUTO) 13.3 % (2-12); NEUTROPHILS # (AUTO) 5.4 X10'3 (1.8-7.7); NEUTROPHILS % (AUTO) 73.3 % (42-75); PLATELET COUNT 182 X10'3 (140-440); RED BLOOD COUNT 4.19 X10'6 (4.20-5.60); RED CELL DISTRIBUTION WIDTH 14.8 % (11.5-14.5); WHITE BLOOD COUNT 7.4 X10'3 (4.5-11.0)
[2023-07-01 09:23] LABS: ALBUMIN 2.5 G/DL (3.4-5.0); ALBUMIN/GLOBULIN RATIO 0.5 (1.1-1.5); ALKALINE PHOSPHATASE 103 IU/L (46-116); ANION GAP 5 (8-16); ASPARTATE AMINO TRANSFERASE 18 U/L (10-37); BILIRUBIN,TOTAL 0.9 MG/DL (0.1-1.0); BLOOD UREA NITROGEN 15 MG/DL (7-18); BUN/CREATININE RATIO 23.8 (10.0-20.0); CALCIUM 8.7 MG/DL (8.5-10.1); CHLORIDE 104 MMOL/L (99-107); CREATININE 0.63 MG/DL (0.40-0.90); GLUCOSE 92 MG/DL (70-104); MAGNESIUM 2.1 MG/DL (1.5-2.4); POTASSIUM 4.3 MMOL/L (3.5-5.1); SODIUM 139 MMOL/L (135-145); TOTAL PROTEIN 7.2 G/DL (6.4-8.2); eCRCL 47 ML/MIN; eGFR 89 ML/MIN
[2023-07-01 09:30] VITALS: BP 107/57; PULSE 82; RESP 18; O2SAT 98
[2023-07-01 09:41] LABS: ALANINE AMINOTRANSFERASE < 6 U/L (12-78)
[2023-07-01] MEDS ORDERED: OXYC-658 PO (11:49)
[2023-07-01] MEDS ORDERED: HYDR-3965 PO (12:53)
== END 2023-07-01 14:30 | disposition home or self-care (01) ==
LOC: ER 06:35
DX: S72.91XA Unspecified fracture of right femur, initial encounter for closed fracture (principal); I48.91 Unspecified atrial fibrillation; F03.90 Unspecified dementia, unspecified severity, without behavioral disturbance, psychotic disturbance, mood disturbance, and anxiety; I10 Essential (primary) hypertension; K21.9 Gastro-esophageal reflux disease without esophagitis; D64.9 Anemia, unspecified; Z88.2 Allergy status to sulfonamides; Z86.73 Personal history of transient ischemic attack (TIA), and cerebral infarction without residual deficits; W18.30XA Fall on same level, unspecified, initial encounter; Y93.89 Activity, other specified; Y92.89 Other specified places as the place of occurrence of the external cause; Y99.8 Other external cause status
CPT/HCPCS: 36415; 70450; 71045; 73501; 73560; 80053; 83735; 85025; 93005; 96374; 96375; 99285; J2270; J2405